=== PATIENT | female | born 1995 | race Caucasian/White ===

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

== ENCOUNTER 2017-07-18 00:47 | Emergency (ER) | payer OTHER ==
[2017-07-18 00:55] VITALS: O2SAT 94
--- NOTE | 2017-07-18 01:05 | EDPHY ---
H & P Stated Complaint: Fever Time Seen by Provider: 07/18/17 01:05 HPI/ROS: HPI CHIEF COMPLAINT: Fever, muscle aches, joint pain, sore throat HISTORY OF PRESENT ILLNESS: Patient very pleasant 21-year-old female she is [employer] student, she is otherwise healthy with no significant medical history she does not take any medications she presents emergency room with fever. Patient reports she started feeling sick yesterday. She flew back from [facility] to [place] this evening. She was on spring. She states yesterday she started feeling sick. Developed a sore throat, muscle aches and joint pain. She denies headache or neck pain or neck stiffness. Denies vomiting or productive cough. Denies diarrhea or abdominal pain. Denies urinary symptoms. Main complaint is muscle aches joint pain, and sore throat. She decided come the emergency room this evening as she was feeling worse. She last took Tylenol and Motrin at 6:00 p.m. Or approximately 7 hr ago. Of note she presents emergency room febrile, and tachycardic however she appears very well nontoxic on exam. Past Medical History: No significant medical history Past Surgical History: No significant surgical history Social History: [employer] student denies drugs alcohol tobacco. Family History: Noncontributory ROS REVIEW OF SYSTEMS: A comprehensive 10 point review of systems is otherwise negative aside from elements mentioned in the history of present illness. Exam Constitutional appears nontoxic, vital signs noted at triage to be febrile and tachycardic. triage nursing summary reviewed, vital signs reviewed, awake/ alert. Eyes normal conjunctivae and sclera, EOMI, PERRLA. HENT bilateral TMs are erythematous and bulging, posterior pharynx is erythematous without significant exudate or swelling, uvula midline, no signs of [employer] RPA, no change in phonation no meningeal signs,, moist mucus membranes, no epistaxis, neck supple/ no meningismus, no raccoon eyes. Respiratory clear to auscultation bilaterally, normal breath sounds, no respiratory distress, no wheezing. Cardiovascular rate normal, regular rhythm, no murmur, no edema, distal pulses normal. Gastrointestinal soft, non-tender, no rebound, no guarding, normal bowel sounds, no distension, no pulsatile mass. Genitourinary no CVA tenderness. Musculoskeletal no midline vertebral tenderness, full range of motion, no calf swelling, no tenderness of extremities, no meningismus, good pulses, neurovascularly intact. Skin pink, warm, & dry, no rash, skin atraumatic. Neurologic awake, alert and oriented x 3, AAOx3, moves all 4 extremities equally, motor intact, sensory intact, CN II-XII intact, normal cerebellar, normal vision, normal speech. Psychiatric normal mood/affect. Heme/Lymph/Immune no lymphadenopathy. Differential Diagnosis: Includes but is not limited to in a particular order viral illness, viral pharyngitis, strep pharyngitis, influenza, upper respiratory tract infection, pneumonia, UTI, sepsis Medical Decision Making: Plan for this patient: 1 g of Tylenol be given an 800 mg Motrin for acute fever control, check influenza, check strep. Re- evaluate. P.o. Fluids. Re-evaluation: 0225: Patient re-evaluate her heart rate is currently 105. Her temperature is down she is feeling much better after Tylenol Motrin and p.o. Fluids. She appears well nontoxic. Here in the emergency room her rapid strep is negative influenza negative. However given the posterior pharynx showing erythema bilateral inflamed TMs I will place on azithromycin for what appears to be possibly strep. Will start azithromycin here in the emergency room. Will prescribe azithromycin. Additionally recommend she alternate Tylenol and ibuprofen for fever control. I recommend she drink lots of fluids. Here in emergency room she appears well nontoxic she has no meningeal signs not feel that she needs any further imaging or spinal tap at this time. She most likely has strep pharyngitis versus viral illness. Return precautions discussed with her she understands. Source: Patient - Personal History LMP (Females 10-55): 1-7 Days Ago Current Tetanus/Diphtheria Vaccine: Yes Tetanus Vaccine Date: within 10 years - Medical/Surgical History Hx Asthma: No Hx Chronic Respiratory Disease: No Hx Diabetes: No Hx Cardiac Disease: No Hx Renal Disease: No Hx Cirrhosis: No Hx Alcoholism: No Hx HIV/AIDS: No Hx Splenectomy or Spleen Trauma: No Other PMH: Denies - Social History Smoking Status: Never smoked Constitutional: Initial Vital Signs Temperature (C) 38.7 C H 07/18/17 00:52 Heart Rate 120 H 07/18/17 00:52 Respiratory Rate 16 07/18/17 00:52 Blood Pressure 127/81 H 07/18/17 00:52 O2 Sat (%) 94 07/18/17 00:52 O2 Delivery Mode Room Air Allergies/Adverse Reactions: No Known Allergies Allergy (Verified 07/18/17 00:50) Home Medications: Medication Instructions Recorded Azithromycin [Zithromax] 250 mg PO DAILY #6 tab 07/18/17 Ibuprofen [Motrin (*)] 800 mg PO Q6-8PRN #10 tab 07/18/17 Medical Decision Making - Data Points Laboratory Results: 07/18/17 07/18/17 Unknown 01:05 Nasal Influenza A PCR NEGATIVE FOR FLU A (NEGATIVE) Nasal Influenza B PCR NEGATIVE FOR FLU B (NEGATIVE) Group A Strep Screen NEGATIVE (NEGATIVE) Group A Strep DNA Pending Medications Given: Discontinued Medications Acetaminophen (Tylenol) 1,000 mg PO EDNOW ONE Stop: 07/18/17 01:09 Last Admin: 07/18/17 01:10 Dose: 1,000 mg Acetaminophen (Tylenol) 1,000 mg PO EDNOW ONE Stop: 07/18/17 01:10 Last Admin: 07/18/17 01:11 Dose: Not Given Azithromycin (Zithromax) 500 mg PO EDNOW ONE PRN Reason: Protocol Stop: 07/18/17 02:13 Last Admin: 07/18/17 02:13 Dose: 500 mg Ibuprofen (Motrin) 600 mg PO EDNOW ONE Stop: 07/18/17 01:09 Last Admin: 07/18/17 01:10 Dose: 600 mg Ibuprofen (Motrin) 800 mg PO EDNOW ONE Stop: 07/18/17 01:10 Last Admin: 07/18/17 01:11 Dose: Not Given Departure - Departure Disposition: Home, Routine, Self-Care Clinical Impression: Fever Qualifiers: Fever type: unspecified Qualified Code(s): R50.9 - Fever, unspecified Pharyngitis Qualifiers: Pharyngitis/tonsillitis etiology: unspecified etiology Qualified Code(s): J02.9 - Acute pharyngitis, unspecified Condition: Good Instructions: Azithromycin (By mouth), Fever in Adults (ED), Pharyngitis (ED) Additional Instructions: 1. Make sure to stay well-hydrated drink lots of fluids. 2. I do recommend you take Tylenol and/or Motrin every 4-6 hours for fever and pain control. 3. Return emergency room if develops worsening symptoms includes high fever, vomiting or not feeling well. Referrals: NONE *PRIMARY CARE P,. [Primary Care Provider] - As per Instructions Stand Alone Forms: School Excuse Prescriptions: Azithromycin [Zithromax] 250 mg PO DAILY #6 tab Ibuprofen [Motrin (*)] 800 mg PO Q6-8PRN #10 tab
[2017-07-18] MEDS ORDERED: ACETAMINOPHEN 500 MG TAB ONE (01:07)
[2017-07-18] MEDS ORDERED: IBUPROFEN 600 MG TAB PO ONE ×2 (01:07→01:08)
[2017-07-18] MEDS ORDERED: ACETAMINOPHEN 500 MG TAB PO ONE ×2 (01:08→01:09)
[2017-07-18] MEDS ORDERED: IBUPROFEN 800 MG TAB PO ONE (01:09)
[2017-07-18 01:59] VITALS: BP 129/68; PULSE 110; RESP 18; TEMP 100.6
[2017-07-18] MEDS ORDERED: AZITHROMYCIN 250 MG TAB PO ONE ×2 (02:11→02:12)
== END 2017-07-18 02:37 | disposition home or self-care (01) ==
DX: J02.9 Acute pharyngitis, unspecified (principal)